=== PATIENT | female | born 1995 | race Caucasian/White ===

== ENCOUNTER 2017-06-04 13:46 | Emergency (ER) | payer BC, MEDICAID ==
[2017-06-04 13:55] VITALS: BP 113/78
[2017-06-04 14:07] LABS: Urine Bilirubin Negative (NEGATIVE); Urine Blood Negative /ul (NEGATIVE); Urine Ketone Negative (NEGATIVE); Urine Nitrite Negative (NEGATIVE); Urine Protein 15 mg/dL (NEGATIVE); Urine Urobilinogen Normal (NORMAL)
[2017-06-04 14:16] LABS: Urine Amorphous Sediment Many - 3+ (NONE-FEW); Urine Appearance Cloudy; Urine Bacteria 1+; Urine Color Yellow; Urine RBC 0-5 /hpf (0-5); Urine WBC 0-5 /hpf (0-5)
--- NOTE | 2017-06-04 15:46 | ERNOTE ---
Headache ER HPI - Narrative Date of Service: 06/04/17 - General Presenting Symptoms: headache Time Seen by Provider: 06/04/17 13:52 Source: patient Exam Limitations: no limitations - Immun/Allergies/Home Medications Immunizations: IMMUNIZATION HX Immunizations Up to Date Yes History of Influenza Vaccine More Information Required Hx Pneumococcal Vaccination More Information Required Allergies/Adverse Reactions: Allergies No Known Allergies Allergy (Verified 06/04/17 13:54) Home Medications: HOME MEDICATIONS NK [No Home Medication] 06/04/17 [Last Taken Unknown] - History of Present Illness Narrative: Patient presents with headache after head injury. She relates this has been going on for 1 week. One week ago she bent over and hit her head on the chair frontal. She has immediate pain and it has been hurting ever since then. No vomiting but she has felt confused ever since then. Pain frontal left sided- frontal mostly. Nothing seems to make it better or worse. Has not seen anyone else for this. No N/T/W. She denies fever, CO exposure, acute visual change or other associated Sx. All Sx began with the head injury. No neck pain. Activity at onset: other - hit head Timing of Headache: persistent Context Headache: Present: recent head injury > 24 hrs. Absent: CO exposure, sick contact, meningitis exposure Severity-Currently: Present: moderate Headache frequency: Present: other - gets frequent migraines by her report Modifying Factors - (Improves): Reports: other - nothign Modifying Factors - (Worsens): Reports: other - nothing Associated Symptoms: Denies: fever/chills, vomiting, numbness/tingling, loss of consciousness, neck pain/stiffness Prior Treament: Denies: recently seen Review of Systems - Review of Systems Constitutional: Absent: fever EYE: Absent: vision changes ENT: Absent: sore throat Respiratory: Absent: shortness of breath Cardiology: Absent: chest pain Gastrointestinal/Abdominal: Absent: vomiting, abdominal pain Musculoskeletal: Absent: muscle stiffness Skin: Absent: rash Neurological: Absent: weakness Psych: Present: other - she denies SI or HI. - Patient's Past Medical History Patient History - Medical: Chronic Pain, Other Patient History - Cardiac/Respiratory: No pertinent hx Patient History - Cancer: No Hx of Cancer Patient History - Surgical Procedures: Ear Tubes, Other Patient History - Other: None - Social History Psych History: Hx of Depression, Hx of Suicide Attempt Smoking Status: Current every day smoker Have you smoked in the past 12 months: Yes - Immunizations Immunizations Up to Date: Yes Hx Pneumococcal Vaccination: More Information Required to Determine History of Influenza Vaccine: More Information Required to Determine Physical Exam - Physical Exam General Appearance: Present: alert, no apparent distress Head Exam: Present: normal inspection Eye Exam: Normal inspection: bilateral, PERRL: bilateral Ears, Nose, Throat: Present: normal ENT inspection, other - no otorrhea or rhinorrhea Neck: Present: normal inspection, other - supple, no meningeal signs. No point vertebral tenderness, nothing clinically to suggest fracture or ligamentous injury. Absent: tender posterior midline Respiratory: Present: no respiratory distress, normal breath sounds, lungs clear Cardiovascular/Chest: Present: regular rate, rhythm Gastrointestinal/Abdominal: Present: normal bowel sounds, nontender, soft Back Exam: Present: normal range of motion Extremity Exam: Present: normal inspection, normal range of motion Neurological Exam: Present: alert, normal mood/affect, no motor/sensory deficits , internal control consultant II-XII nml as tested. Absent: facial droop, motor weakness Skin Exam: Present: normal color, warm/dry ED Progress - Results and Orders Patient's Lab Results:: I have reviewed the patient's lab results. - Vital Signs Patient's Vital Signs:: I have reviewed the patient's vital signs. Vital Signs: Vital Signs 06/04/17 13:51 Temperature 36.9 C Pulse Rate 84 Respiratory 14 Rate Blood Pressure 113/78 O2 Sat by Pulse 97 Oximetry - CT/Ultrasound CT/Ultrasound Narrative: I reviewed official head CT report per radiology - Progress/Reassessment Chief Complaint: Headache Progress Note-Subjective: 06/04/17 15:42 No suggestion of SAH, subdural, ICH, meningitis, CO exposure or other life threat. This all began with a head injury. Likely post concussive syndrome. She feels like going home. I discussed warning signs and reasons to return as well as the need for close f/u. Departure Clinical Impression: Headache, post-traumatic - Departure Disposition: Home self-care Condition: Stable Instructions: Head Injury, Adult, [id number] Additional Instructions: Rest. Follow-up with your doctor in 2 days for a re-check. Return for increased pain, fever, numbness, tingling, weakness or if your condition worsens or changes in any way. Referrals: Mirtha Sosa, DO [Primary Care Provider] -
== END 2017-06-04 15:50 | disposition home or self-care (01) ==
LOC: ER 13:46
DX: G44.319 Acute post-traumatic headache, not intractable (principal); X58.XXXA Exposure to other specified factors, initial encounter; Y93.9 Activity, unspecified; F17.200 Nicotine dependence, unspecified, uncomplicated

== ENCOUNTER 2017-09-15 16:15 | Emergency (ER) | payer BC ==
[2017-09-15 16:26] VITALS: BP 140/63
--- NOTE | 2017-09-15 16:41 | ERNOTE ---
Date of Service: 09/15/17 Time Seen by Provider: 09/15/17 16:39 Stated Complaint: COUGHING UP BLOOD Presenting Symptoms:: cough Source: patient, RN notes reviewed Exam Limitations: no limitations Immunizations: IMMUNIZATION HX Immunizations Up to Date Yes History of Influenza Vaccine More Information Required Hx Pneumococcal Vaccination More Information Required Allergies/Adverse Reactions: Allergies No Known Allergies Allergy (Verified 06/04/17 13:54) Home Medications: HOME MEDICATIONS Azithromycin [Zithromax] 250 mg PO DAILY #6 tablet 09/15/17 [Last Taken Unknown] Promethazine HCl/Codeine [Prometh-Codein 6.25-10 mg/5 ml] 5 ml PO Q4H PRN #120 ml 09/15/17 [Last Taken Unknown] predniSONE [Prednisone] 1 tab PO DAILY #5 tab 09/15/17 [Last Taken Unknown] - History of Present Ilness Narrative: 22 year old female presents to the ED for a cough for the past week. She reports that it is the worst at night and she is unable to sleep. She does not think she has had a fever. She denies any sick contacts. Frequency/Possible Cause: Reports: unknown cause Modifying Factors - Improves: Reports: nothing Modifying Factors - Worsens: Reports: activity, lying down Associated Symptoms: Reports: cough, nasal congestion, nasal drainage, sore throat. Denies: chest pain/soreness, shortness of breath, wheezing, facial pain , dizziness, lightheadedness, earache, headache, muscle aches, fever/chills Prior Treatment: Denies: recently seen Review of Systems - Review of Systems Constitutional: Present: fatigue, malaise. Absent: recent illness, fever, chills EYE: Absent: eye pain, eye discharge ENT: Present: nose congestion, nasal drainage. Absent: ear pain, sore throat Respiratory: Present: cough. Absent: shortness of breath Cardiology: Absent: chest pain, syncope Gastrointestinal/Abdominal: Absent: nausea, abdominal pain Genitourinary: Present: no symptoms reported Musculoskeletal: Absent: muscle pain, joint pain Skin: Absent: rash, lesions Neurological: Absent: headache, dizziness/light-headedness Endocrine: Present: no symptoms reported Hematologic/Lymphatic: Present: no symptoms reported Psych: Present: no symptoms reported - Patient's Past Medical History Patient History - Medical: Bipolar, Chronic Pain, Depression, Other Patient History - Cardiac/Respiratory: Asthma Patient History - Cancer: No Hx of Cancer Patient History - Surgical Procedures: Ear Tubes, Other Patient History - Other: None LMP (females 10-50): now - Social History Living Situations: alone Psych History: Hx of Depression, Hx of Bipolar Disorder, Hx of Suicide Attempt Smoking Status: Current every day smoker Cigarettes Packs Per Day: 0.5 Have you smoked in the past 12 months: Yes Do you dip or chew tobacco: No Alcohol Use: rarely Drug Use: none - Immunizations Immunizations Up to Date: Yes Hx Pneumococcal Vaccination: More Information Required to Determine History of Influenza Vaccine: More Information Required to Determine Physical Exam - Physical Exam General Appearance: Present: wd/wn, alert, no apparent distress Head Exam: Present: normal inspection. Absent: swelling, tenderness Eye Exam: Normal inspection: bilateral Ears, Nose, Throat: Present: nasal congestion, pharyngeal erythema. Absent: abnormal TM (R), abnormal TM (L), sinus pain/drainage, pharyngeal swelling, dry mucous membranes Neck: Present: normal inspection, nontender, supple Respiratory: Present: no respiratory distress, no accessory muscle use, expiration (prolonged), rhonchi Cardiovascular/Chest: Present: regular rate, rhythm, no murmur, normal peripheral pulses Extremity Exam: Present: normal inspection, normal range of motion Neurological Exam: Present: alert, oriented, normal mood/affect Skin Exam: Present: normal color, warm/dry ED Progress - Vital Signs Patient's Vital Signs:: I have reviewed the patient's vital signs. Vital Signs: Vital Signs 09/15/17 16:21 Temperature 36.2 C L Pulse Rate 84 Respiratory 16 Rate Blood Pressure 140/63 O2 Sat by Pulse 98 Oximetry - Progress/Reassessment Chief Complaint: Cough Progress:: Unchanged Departure Clinical Impression: Bronchitis, acute Qualifiers: Bronchitis organism: unspecified organism Qualified Code(s): J20.9 - Acute bronchitis, unspecified - Departure Disposition: Home self-care Condition: Stable Instructions: Acute Bronchitis, [id number] Referrals: Mirtha Sosa DO [Primary Care Provider] - Prescriptions: Azithromycin [Zithromax] 250 mg PO DAILY #6 tablet predniSONE [Prednisone] 1 tab PO DAILY #5 tab Promethazine HCl/Codeine [Prometh-Codein 6.25-10 mg/5 ml] 5 ml PO Q4H PRN #120 ml PRN Reason: Cough
== END 2017-09-15 17:01 | disposition home or self-care (01) ==
LOC: ER 16:15
DX: F17.210 Nicotine dependence, cigarettes, uncomplicated; J20.9 Acute bronchitis, unspecified